=== PATIENT | female | born 1940 | race Caucasian/White ===

== ENCOUNTER → 2021-12-13 | Outpatient (CLI) | payer MEDICARE, OTHER ==
--- NOTE | 2021-12-13 15:07 | Diagnostic Imaging Report ---
INDICATION: Left hip pain. TIME OF EXAM: 2:59 PM. FINDINGS: Two views of the left hip demonstrate normal femoroacetabular alignment. The femoral head and neck appear to be intact. No fractures are seen. The left-sided rami are intact. IMPRESSION: No acute abnormality is identified. Dictated by: Dictated on workstation # [id number]
== END ==
LOC: ORTHO 14:44
PROVIDERS: ATTEND Orthopaedic Surgery
DX: M25.552 Pain in left hip (principal)
CPT/HCPCS: 20610; 73502; G0463

== ENCOUNTER → 2022-02-14 | Outpatient (CLI) | payer MEDICARE, OTHER | LOC: ORTHO 11:50 | PROVIDERS: ATTEND Orthopaedic Surgery | DX: M70.62 Trochanteric bursitis, left hip (principal); M54.32 Sciatica, left side; I10 Essential (primary) hypertension; E11.9 Type 2 diabetes mellitus without complications | CPT/HCPCS: 99213 ==